=== PATIENT | female | born 1985 | race Asian ===

== ENCOUNTER 2022-02-18 15:08 | Emergency (ER) | payer OTHER, SELFPAY ==
[2022-02-18 15:10] VITALS: BP 116/79; PULSE 66; RESP 18; TEMP 36.8; O2SAT 99; BMI 28.3
--- NOTE | 2022-02-18 17:56 | ED.EYEPROB ---
HPI - Eye Problem <Belle Cordero PA-C - Last Filed: 02/18/22 18:01> General Chief complaint: Eye Problems Stated complaint: RIGHT EYE INFECTION Time Seen by Provider: 02/18/22 16:43 Source: patient Mode of arrival: Ambulatory History of Present Illness HPI Narrative: 36-year-old female with no reported past medical history presents to the ED with 2 days of right eyelid swelling, redness, pain. Patient states that she tried to put on some fells eyelashes with glue, following which her symptoms started. Patient's symptoms have gradually worsened over the last 2 days. Patient denies any visual disturbances. Patient denies pain behind the eye. Patient denies pain with extraocular movements. Related Data Previous Rx's Medication Instructions Recorded cefdinir 300 mg capsule 300 mg PO BID 7 Days #14 cap 02/18/22 sulfamethoxazole 800 1 tab PO BID 7 Days #14 tab 02/18/22 mg-trimethoprim 160 mg tablet (Bactrim DS) Allergies Allergy/AdvReac Type Severity Reaction Status Date / Time No Known Drug Allergies Allergy Verified 02/18/22 15:10 Review of Systems <Belle Cordero PA-C - Last Filed: 02/18/22 18:01> Review of Systems ROS Unobtainable: All systems reviewed & are unremarkable except as noted in HPI and below Constitutional Constitutional: Denies chills, Denies fatigue, Denies fever(s), Denies frequent falls, Denies lethargy and Denies weakness Eyes Eyes: Denies change in vision, Denies eye discharge, Denies irritation and Denies loss of vision Comments: Right upper eyelid painful, swollen, red. No visual disturbances. No pain with extraocular movements ENT Ears, Nose, Mouth, and Throat: Denies change in voice, Denies dizziness, Denies neck pain, Denies sore throat and Denies throat swelling Cardiovascular Cardiovascular: Denies chest pain, Denies irregular heart rhythm, Denies lightheadedness, Denies palpitations, Denies dyspnea, Denies dyspnea on exertion and Denies orthopnea Respiratory Respiratory: Denies cough, Denies dyspnea, Denies dyspnea on exertion and Denies wheezing Gastrointestinal Gastrointestinal: Denies abdominal pain, Denies change in bowel habits, Denies diarrhea, Denies nausea and Denies vomiting Genitourinary Genitourinary: Denies hematuria, Denies flank pain, Denies urinary incontinence and Denies urinary urgency Musculoskeletal Musculoskeletal: Denies back pain, Denies muscle weakness, Denies neck pain, Denies numbness and Denies tingling Integumentary/Breasts Skin/Breast: Denies pruritus, Denies erythema, Denies rash and Denies wounds Neurologic Neurologic: Denies behavioral changes, Denies confusion, Denies dizziness, Denies frequent falls, Denies loss of vision, Denies numbness, Denies tingling and Denies weakness Psychiatric Psychiatric: Denies anxiety, Denies behavioral changes, Denies confusion, Denies depression, Denies homicidal ideation and Denies suicidal ideation Endocrine Endocrine: Denies fatigue, Denies flushing and Denies palpitations Hematologic/Lymphatic Hematologic/Lymphatic: Denies easy bruising Allergic/Immunologic Allergic/Immunologic: Denies urticaria, Denies throat swelling and Denies wheezing Patient History <Belle Cordero PA-C - Last Filed: 02/18/22 18:01> Social History Smoking Status: Current every day smoker Smoking Status: Current every day smoker tobacco type: cigarettes and vaping alcohol intake frequency: holidays/special occasions only Substance Use Type: does not use Exam <Belle Cordero PA-C - Last Filed: 02/18/22 18:01> Initial Vital Signs Initial Vital Signs: Vital Signs Temperature 98.3 F 02/18/22 15:10 Pulse Rate 66 02/18/22 15:10 Respiratory Rate 18 02/18/22 15:10 Blood Pressure 116/79 02/18/22 15:10 Pulse Oximetry 99 02/18/22 15:10 Const General: cooperative, healthy appearing and comfortable [facility] Head: normal to inspection Eyes General: Yes appearance normal, both eyes and all related structures Neck Neck: normal visual inspection Resp Effort & Inspection: normal respiratory effort Auscultation: clear to auscultation bilaterally Cardio Rate: regular rate Rhythm: regular rhythm Skin General: no rashes or lesions noted Neuro General: patient alert, patient awake and patient oriented x3 Psych Appearance: grossly normal Mental Status: mental status grossly normal <Yared Anaya DO - Last Filed: 02/23/22 01:40> Initial Vital Signs Initial Vital Signs: Vital Signs Temperature 98.3 F 02/18/22 15:10 Pulse Rate 66 02/18/22 15:10 Respiratory Rate 18 02/18/22 15:10 Blood Pressure 116/79 02/18/22 15:10 Pulse Oximetry 99 02/18/22 15:10 Course <Belle Cordero PA-C - Last Filed: 02/18/22 18:01> Vital Signs Vital signs: Vital Signs - 8 hr 02/18/22 15:10 Temperature 98.3 F Pulse Rate 66 Respiratory Rate 18 Blood Pressure 116/79 Pulse Oximetry 99 <DO Shilpi Crockett Last Filed: 02/23/22 01:40> Vital Signs Vital signs: Vital Signs - 8 hr 02/18/22 15:10 Temperature 98.3 F Pulse Rate 66 Respiratory Rate 18 Blood Pressure 116/79 Pulse Oximetry 99 MDM - Eye Problem <Belle Cordero PA-C - Last Filed: 02/18/22 18:01> MDM Narrative Medical decision making narrative: 36-year-old female with no reported past medical history presents to the ED with 2 days of right eyelid swelling, redness, pain. Concern for periorbital cellulitis. Will prescribe antibiotics. ED return precautions discussed with patient. Patient verbalizes understanding. Discharge Plan Departure Patient Disposition: Home Clinical Impression: Periorbital cellulitis Instructions: DI for Eye Pain Activity Restrictions/Additional Instructions: You were evaluated for right-sided upper eyelid swelling, pain. Your symptoms are likely due to preorbital cellulitis which is a infection of the eyelid. You have been prescribed 2 antibiotics for it. Please complete the full course of antibiotics. Please follow-up with an medical collections representative. Return to the ED if your symptoms worsen, you develop fever, chills. Prescriptions: New cefdinir 300 mg capsule 300 mg PO BID 7 Days Qty: 14 0RF sulfamethoxazole-trimethoprim [Bactrim DS] 800-160 mg tablet 1 tab PO BID 7 Days Qty: 14 0RF <DO Shilpi Crockett Last Filed: 02/23/22 01:40> Cosign ED Attending Veronica Attestation: I was immediately available in the department for consultation. Documentation has been reviewed. I agree with assessment and plan.
== END 2022-02-18 18:00 | disposition home or self-care (01) ==
PROVIDERS: Emergency Provider Student in an Organized Health Care Education/Training Program
DX: L03.213 Periorbital cellulitis (principal)
CPT/HCPCS: 99281

== ENCOUNTER 2022-08-10 16:22 | Observation (INO) | payer OTHER, SELFPAY ==
[2022-08-10 17:00] VITALS: BP 126/75; PULSE 70; RESP 18; TEMP 36.8; O2SAT 99; BMI 26.9
[2022-08-10 17:54] LABS: Alanine Aminotransferase 18 IU/L (<35); Albumin 4.2 g/dL (3.5-5.0); Albumin Globulin Ratio 1.2 (1.0-2.8); Alkaline Phosphatase 78 U/L (38-126); Aspartate Aminotransferase 21 IU/L (14-36); BUN Creatinine Ratio 11.3 (6-22); Bilirubin Total 0.3 mg/dL (0.2-1.3); Blood Urea Nitrogen 7 mg/dL (7-17); Calcium 8.7 mg/dL (8.4-10.2); Carbon Dioxide 25 mmol/L (22-32); Chloride 102 mmol/L (98-107); Estimated Glomerular Filt Rate > 60 mL/min (>60); Globulin 3.6 g/dL (1.7-4.1); Glucose 164 mg/dL (70-100); HEMOLYSIS < 15 (0-50); Lipase 84 U/L (23-300); Potassium 3.2 mmol/L (3.4-5.1); Sodium 138 mmol/L (137-145); Total Protein 7.8 g/dL (6.3-8.2)
[2022-08-10 17:56] LABS: Add Manual Diff / Slide Review NO; Basophils Absolute Auto 100 /uL (0-100); Basophils Percent Auto 0.5 % (0-2); Eosinophils Absolute Auto 0 /uL (0-450); Eosinophils Percent Auto 0.2 % (2-4); Hematocrit 34.8 % (36-46); Hemoglobin 11.9 g/dL (12.0-16.0); Lymphocytes Absolute Auto 1500 /uL (1100-4500); Lymphocytes Percent Auto 12.7 % (25-40); Mean Corpuscular Hemoglobin 29.5 PG (26-34); Mean Corpuscular Volume 86.6 fL (80-100); Monocytes Absolute Auto 500 /uL (0-900); Monocytes Percent Auto 4.4 % (3-14); Neutrophils Absolute Auto 10000 /uL (1500-7000); Neutrophils Percent Auto 82.2 % (50-75); Platelet Count 308 X10^3/uL (150-400); Red Blood Cell Count 4.02 X10^6/uL (4.0-5.2); Red Cell Distribution Width 13.1 % (11.6-14.8); White Blood Cell Count 12.1 X10^3/uL (4.5-11.0)
[2022-08-10 18:00] LABS: Bacteria Urine None Seen; Calcium Oxalate Crystals Urine Moderate; Ictotest Urine Negative (Negative); RBC Urine 1-5/HPF (0-5/HPF); Squamous Epithelial Cell Urine 1-5 /HPF (0-5/HPF); WBC Urine None Seen (0-5/HPF)
[2022-08-10 19:00] VITALS: BP 125/85; PULSE 65; RESP 18; O2SAT 99
--- NOTE | 2022-08-10 20:24 | ED.ABDPAIN ---
HPI - Abdominal Pain General Chief Complaint: Abdominal Pain Stated Complaint: Rt Side Adb/Back Pain Time Seen by Provider: 08/10/22 20:21 Source: patient Mode of arrival: Ambulatory Limitations: no limitations History of Present Illness HPI narrative: This is a 37 year old female no known medical issues who is had right-sided abdominal and flank pain for the past month intermittently she states it will often last for 5 hours and then go away. She does not appreciate any alleviating or exacerbating factors. No fevers or chills. She does state she feels cold and sweaty when it happens. She denies diarrhea constipation, no black or bloody stools. No dysuria, urgency or frequency. No vaginal bleeding or discharge. Patient notes she does not get regular menses and is not currently menstruating. Patient states no known drug allergies. Denies any prior surgeries. Does use tobacco, occasional alcohol. No illicit. She takes Tylenol for pain which is somewhat helpful. Related Data Allergies Allergy/AdvReac Type Severity Reaction Status Date / Time No Known Drug Allergies Allergy Verified 02/18/22 15:10 Review of Systems Review of Systems ROS Unobtainable: All systems reviewed & are unremarkable except as noted in HPI and below Patient History Social History household members: spouse Smoking Status: Current every day smoker Smoking Status: Current every day smoker tobacco type: cigarettes and vaping alcohol intake frequency: holidays/special occasions only Substance Use Type: does not use Exam Narrative Exam Narrative: GENERAL: Alert and oriented x three, female in mild distress HEENT: Head normocephalic, atraumatic, EOMI, pupils reactive, face symmetric, moist mucous membranes NECK: Supple, full range of motion CARDIOVASCULAR: Regular rate and rhythm without murmurs, rubs or gallops. RESPIRATORY: Breath sounds equal bilaterally, no wheezes rales or rhonchi. ABDOMEN: Soft, positive for right upper quadrant tenderness. Normoactive bowel sounds all 4 quadrants. No guarding or rebound, rigidity, no mass : No CVA tenderness EXTREMITIES: Normal range of motion, no clubbing or edema. Neurovascularly intact NEUROLOGICAL: Cranial nerves II through XII grossly intact. Moving all extremities SKIN: Warm, dry, no petechiae, no rashes or lesions. Initial Vital Signs Initial Vital Signs: Vital Signs Temperature 98.2 F 10/29/22 17:00 Pulse Rate 70 08/10/22 17:00 Respiratory Rate 18 08/10/22 17:00 Blood Pressure 126/75 08/10/22 17:00 Pulse Oximetry 99 08/10/22 17:00 Oxygen Delivery Method 08/10/22 17:00 Course Orders Ordered: ED Orders 08/10/22 20:31 US abdomen complete Stat 08/10/22 22:39 COVID19 -Nasal RAPID/Pre-Proc Stat Discontinued Medications Piperacillin Sod/Tazobactam (Sod 4.5 gm/ Sodium Chloride) 100 mls @ 200 mls/hr IV NOW ONE Stop: 08/10/22 22:04 Last Infusion: 08/10/22 23:30 Dose: 0 mls/hr Documented By: Admin: 08/10/22 22:27 Dose: 200 mls/hr Documented By: KIRTI Ketorolac Tromethamine (Ketorolac 30 Mg/Ml Vial) 15 mg IV NOW ONE Stop: 08/10/22 20:32 Last Admin: 08/10/22 21:01 Dose: 15 mg Documented By: ALY Consultations Consultation #1: Dr. Mcgrath, accepts observation for cholecystitis. Plan for Zosyn. NPO after midnight. Time: 22:51 Vital Signs Vital signs: Vital Signs - 8 hr 08/10/22 17:00 Temperature 98.2 F Pulse Rate 70 Respiratory Rate 18 Blood Pressure 126/75 Pulse Oximetry 99 Oxygen Delivery Method Room Air MDM - Abdominal Pain Lab Data Result diagrams: 08/10/22 17:29 08/10/22 17:29 Labs: Lab Results 08/10/22 08/10/22 08/10/22 Range/Units 17:29 17:29 17:29 WBC 12.1 H (4.5-11.0) X10^3/uL RBC 4.02 (4.0-5.2) X10^6/uL Hgb 11.9 L (12.0-16.0) g/dL Hct 34.8 L (36-46) % MCV 86.6 (80-100) fL MCH 29.5 (26-34) PG MCHC 34.0 (30-36) % RDW 13.1 (11.6-14.8) % Plt Count 308 (150-400) X10^3/uL Neut % (Auto) 82.2 H (50-75) % Lymph % (Auto) 12.7 L (25-40) % [place] % (Auto) 4.4 (3-14) % Eos % (Auto) 0.2 L (2-4) % Baso % (Auto) 0.5 (0-2) % Neut # (Auto) 65092 H (8929-2161) /uL Lymph # (Auto) 1500 (7644-8681) /uL [place] # (Auto) 500 (0-900) /uL Eos # (Auto) 0 (0-450) /uL Baso # (Auto) 100 (0-100) /uL Sodium 138 (137-145) mmol/L Potassium 3.2 L (3.4-5.1) mmol/L Chloride 102 (98-107) mmol/L Carbon Dioxide 25 (22-32) mmol/L BUN 7 (7-17) mg/dL Creatinine 0.62 (0.52-1.04) mg/dL Estimated GFR > 60 (>60) mL/min BUN/Creatinine Ratio 11.3 (6-22) Glucose 164 H (70-100) mg/dL Calcium 8.7 (8.4-10.2) mg/dL Total Bilirubin 0.3 (0.2-1.3) mg/dL AST 21 (14-36) IU/L ALT 18 (<35) IU/L Alkaline Phosphatase 78 (38-126) U/L Total Protein 7.8 (6.3-8.2) g/dL Albumin 4.2 (3.5-5.0) g/dL Globulin 3.6 (1.7-4.1) g/dL Albumin/Globulin Ratio 1.2 (1.0-2.8) Lipase 84 (23-300) U/L Ur Bilirubin Confirm Negative (Negative) Urine RBC 1-5/hpf (0-5/HPF) Urine WBC None seen (0-5/HPF) Ur Squamous Epith Cells 1-5 /hpf (0-5/HPF) Calcium Oxalate Crystal Moderate H Urine Bacteria None seen (None) SARS-CoV-2 (PCR) (Negative) 08/10/22 Range/Units 22:39 WBC (4.5-11.0) X10^3/uL RBC (4.0-5.2) X10^6/uL Hgb (12.0-16.0) g/dL Hct (36-46) % MCV (80-100) fL MCH (26-34) PG MCHC (30-36) % RDW (11.6-14.8) % Plt Count (150-400) X10^3/uL Neut % (Auto) (50-75) % Lymph % (Auto) (25-40) % [place] % (Auto) (3-14) % Eos % (Auto) (2-4) % Baso % (Auto) (0-2) % Neut # (Auto) (8020-4627) /uL Lymph # (Auto) (3116-8417) /uL [place] # (Auto) (0-900) /uL Eos # (Auto) (0-450) /uL Baso # (Auto) (0-100) /uL Sodium (137-145) mmol/L Potassium (3.4-5.1) mmol/L Chloride (98-107) mmol/L Carbon Dioxide (22-32) mmol/L BUN (7-17) mg/dL Creatinine (0.52-1.04) mg/dL Estimated GFR (>60) mL/min BUN/Creatinine Ratio (6-22) Glucose (70-100) mg/dL Calcium (8.4-10.2) mg/dL Total Bilirubin (0.2-1.3) mg/dL AST (14-36) IU/L ALT (<35) IU/L Alkaline Phosphatase (38-126) U/L Total Protein (6.3-8.2) g/dL Albumin (3.5-5.0) g/dL Globulin (1.7-4.1) g/dL Albumin/Globulin Ratio (1.0-2.8) Lipase (23-300) U/L Ur Bilirubin Confirm (Negative) Urine RBC (0-5/HPF) Urine WBC (0-5/HPF) Ur Squamous Epith Cells (0-5/HPF) Calcium Oxalate Crystal Urine Bacteria (None) SARS-CoV-2 (PCR) Negative (Negative) Point of care testing: Point of Care Testing Test Results Negative Urine Dip Bedside Urine Glucose Negative Bedside Urine Bilirubin + 1 Bedside Urine Ketone + 15 Urine Specific [place] 1.030 Bedside Urine Occult Blood ++ Bedside Urine pH 6 Bedside Urine Protein +/- 15 Bedside Urine Urobilinogen - Negative Bedside Urine Nitrite - Negative Bedside Urine Leukocytes - Negative Esterase Imaging Data US - abdomen: Radiologist's Impression: [address] [address] Ultrasound Report Signed Patient: Kacy Ornelas MR#: [id number] : 1985 Acct:[id number] Age/Sex: 37 / F Date of Service: 08/10/22 Loc: ED Accession Number: [id number] ?? Procedure: US abdomen complete Ordering Provider: Kika Espinoza D.O. PROCEDURE:? US ABDOMEN COMPLETE ? INDICATIONS:? RUQ pain/also kidney ? TECHNIQUE:? Real-time scanning was performed of the abdominal and retroperitoneal organs, with image documentation.? ? COMPARISON:? None. ? FINDINGS:? ? Liver:? Liver is normal in size and homogeneous in echotexture.? Incidental note is made of a small 1.0 x 1.3 x 0.9 cm left lateral hepatic segment cyst, simple in character ? Gallbladder:? The gallbladder is hydropic measuring up to 14.2 cm in length and 2.5 x 3.7 cm in axial dimension.? There is a mobile 1.6 cm gallstone at the fundus, and a nonmobile 1.0 x 1.4 cm gallstone at the gallbladder neck.? The gallbladder wall is abnormally thickened at 6.3 mm and there is abnormal pericholecystic free fluid.? Sludge also is present within the gallbladder lumen. ? Biliary ducts:? Intrahepatic bile ducts are non-dilated.? Extrahepatic bile duct caliber measures 7.6 mm at the common bile duct mm.? Normal is 6-7 mm or less in diameter, or 10 mm or less post-cholecystectomy.? ? Pancreas:? Visualized portions of the pancreas are sonographically normal.? The pancreas is poorly visualized due to overlying bowel gas. ? Spleen:? Spleen is normal in size and homogeneous in echotexture.? ? Kidneys:? Kidneys are normal in size and echotexture.? Right kidney measures 10.6 cm long; left kidney measures 10.8 cm long.? No hydronephrosis or nephrolithiasis.? No solid masses.? ? Aorta:? Visualized aorta is normal in caliber at less than 3 cm.? ? Iliacs:? Proximal common iliac arteries are normal in caliber at less than 2.5 cm.? ? IVC:? Intrahepatic inferior vena cava is patent.? ? Miscellaneous:? No free abdominal fluid.? ? ? IMPRESSION:? Cholecystitis peers present, with post sludge and stones within the gallbladder lumen including a calculus that appears impacted at the gallbladder neck, nonmobile.? This results in abnormal gallbladder wall thickening, and pericholecystic free fluid with gallbladder wall thickening surgical consultation is recommended. ? As noted above the pancreas is relatively poorly visualized due to overlying bowel gas. ? ? ? Dictated by: Obed Aguilera M.D. on 08/10/2022 at 22:08 ? ? Approved by: Obed Aguilera M.D. on 08/10/2022 at 22:13?? MDM Narrative Medical decision making narrative: This is a 37-year-old female who presents with intermittent right-sided abdominal and flank pain that comes and goes she does have some hematuria and calcium oxalate but is tender in her right upper quadrant on exam.? Leukocytosis of 12, hemoglobin of 11 with no priors for comparison, potassium 3.2 with a glucose of 164 otherwise normal LFTs and abdominal labs and renal function.? Urine does not show other signs of infection. Ultrasound shows changes consistent with cholecystitis with a non mobile large stone in the neck of the gallbladder no lab changes, patient was started IV antibiotics consultation with general surgery who accepts with plan for OR today. Discussed with patient who is open to this plan. Discharge Plan Departure Patient Disposition: Admitted as Observation Clinical Impression: Cholecystitis Admit Date/Time: 08/10/22 22:51 Admit Provider: Magdiel Mcgrath
--- NOTE | 2022-08-10 20:31 | DI.US.S_ITS ---
PROCEDURE: US ABDOMEN COMPLETE INDICATIONS: RUQ pain/also kidney TECHNIQUE: Real-time scanning was performed of the abdominal and retroperitoneal organs, with image documentation. COMPARISON: None. FINDINGS: Liver: Liver is normal in size and homogeneous in echotexture. Incidental note is made of a small 1.0 x 1.3 x 0.9 cm left lateral hepatic segment cyst, simple in character Gallbladder: The gallbladder is hydropic measuring up to 14.2 cm in length and 2.5 x 3.7 cm in axial dimension. There is a mobile 1.6 cm gallstone at the fundus, and a nonmobile 1.0 x 1.4 cm gallstone at the gallbladder neck. The gallbladder wall is abnormally thickened at 6.3 mm and there is abnormal pericholecystic free fluid. Sludge also is present within the gallbladder lumen. Biliary ducts: Intrahepatic bile ducts are non-dilated. Extrahepatic bile duct caliber measures 7.6 mm at the common bile duct mm. Normal is 6-7 mm or less in diameter, or 10 mm or less post-cholecystectomy. Pancreas: Visualized portions of the pancreas are sonographically normal. The pancreas is poorly visualized due to overlying bowel gas. Spleen: Spleen is normal in size and homogeneous in echotexture. Kidneys: Kidneys are normal in size and echotexture. Right kidney measures 10.6 cm long; left kidney measures 10.8 cm long. No hydronephrosis or nephrolithiasis. No solid masses. Aorta: Visualized aorta is normal in caliber at less than 3 cm. Iliacs: Proximal common iliac arteries are normal in caliber at less than 2.5 cm. IVC: Intrahepatic inferior vena cava is patent. Miscellaneous: No free abdominal fluid. IMPRESSION: Cholecystitis peers present, with post sludge and stones within the gallbladder lumen including a calculus that appears impacted at the gallbladder neck, nonmobile. This results in abnormal gallbladder wall thickening, and pericholecystic free fluid with gallbladder wall thickening surgical consultation is recommended. As noted above the pancreas is relatively poorly visualized due to overlying bowel gas. Dictated by: Obed Aguilera M.D. on 08/10/2022 at 22:08 Approved by: Obed Aguilera M.D. on 08/10/2022 at 22:13
[2022-08-10 21:00] VITALS: BP 135/87; PULSE 68; RESP 16; O2SAT 100
[2022-08-10] MEDS: KETOROLAC 30 MG/ML VIAL 15 MG IV (21:01)
[2022-08-10] MEDS: PIPERACILLIN/TAZO 4.5 GM in SODIUM CHLORIDE 0.9% 100 ML IV (22:27)
[2022-08-10 23:01] LABS: COVID19 -Nasal RAPID Negative (Negative)
[2022-08-10 23:17] VITALS: BP 143/86; PULSE 61; RESP 20; O2SAT 99
[2022-08-10 23:29] VITALS: BMI 26.9
[2022-08-11] VITALS (13 sets, daily range): BP systolic 90–121; BP diastolic 51–82; PULSE 54–94; RESP 14–24; TEMP 35.5–36.9; O2SAT 96–100; BMI 26.9
--- NOTE | 2022-08-11 | PATH_ITS ---
[facility] Accession Number: [id number] . 01 Material submitted: . gallbladder - GALLBLADDER . 01 Diagnosis: Gallbladder, Cholecystectomy: Cholelithiasis with chronic active cholecystitis. No evidence of neoplasm. [facility] 08/15/2022 1730 Local . 01 Electronically signed: . Abhijeet Pool MD, PhD, Pathologist NPI- [id number] . 01 Gross description: . The specimen is received in formalin labeled with the patient's name and gallbladder, and consists of an intact gallbladder measuring 14.2 x 3.1 x 2.7 cm with congested smooth serosa and a rough and unremarkable hepatic surface. The cystic duct is received closed with a clamp, is inked blue, and no pericystic lymph node is identified. Opening the specimen reveals the lumen to be filled with green-brown mucoid bile and two dark brown to black roughened calculi obstructing the cystic duct and measuring 1.5 cm in greatest dimension. The mucosa is brown and trabecular with no pinpoint yellow areas of discoloration, polyps, or lesions identified. The harman have a thickened firm area located approximately centrally and measuring 1.8 x 1.4 x 0.5 cm, and the serosa adjacent to this area is inked black. A second firm thickened area measuring 1.6 x 1.3 x 0.5 cm is identified, and the serosa adjacent to this area is inked orange. The remaining harman average 0.4 cm thick, and medical billing representative sections to include the cystic duct margin, unremarkable sections, and areas of thickening are submitted in cassettes A1-A2. ([id number]) /MRV 08/14/2022 1236 Local . 01 Pathologist provided ICD-10: K81.2, K80.60 . 01 CPT . 316811 Performed at: 01 [facility] [address] [address] [facility], [place], [place] [id number] MD Jordi Mccann MD Phone: [phone]
--- NOTE | 2022-08-11 04:50 | PC.NURSE ---
Pt is AxOx4, independent and cooperative. Pt arrived to the unit around 2330. No c/o pain, on RA and doing well. Pt slept well. No other changes.
--- NOTE | 2022-08-11 11:46 | PM.HP.1 ---
History of Present Illness History of Present Illness Date Patient Seen: 08/11/22 Time Patient Seen: 11:46 Chief complaint: Rt Side Adb/Back Pain Narrative: 37-year-old healthy woman who presented to the emergency room last night with acute onset of abdominal pain. She has been having previous episodes of right upper quadrant pain with associated nausea and bloating following meals. Last night she developed severe pain which did not resolve spontaneously. On arrival to she was afebrile vital signs within normal limits. Laboratory studies WBC 12, hematocrit 35, total bilirubin 0.3 LFTs within normal limits. Abdominal ultrasound demonstrates a distended gallbladder with a stone lodged within the neck of judy cholecystic fluid or wall thickening. Bile duct structures were normal. Patient History Family & Social History Social History: household members spouse Prior Living Arrangements House Safety & Behavioral: Feels Safe in Current Yes Environment Been Physically Hurt or No Threatened By a Person Tobacco & Substance use: Smoking Status Current every day smoker alcohol intake frequency holiday/special occasion Substance Use Type does not use Meds Home Medications and Allergies Allergies Allergy/AdvReac Type Severity Reaction Status Date / Time No Known Drug Allergies Allergy Verified 02/18/22 15:10 Exam Vital Signs (past 8 hours): - 08/11/22 08:42 Temperature 96.4 F L Pulse Rate 68 Respiratory Rate 16 Blood Pressure 113/72 Pulse Oximetry 98 Oxygen Flow Rate 0 Oxygen Delivery Method Room Air Oxygen Flow Rate 0 Narrative Exam Narrative: General adult woman alert oriented no acute distress Chest nonlabored respirations Abdomen tender right upper quadrant. Extremities warm well perfused Objective Labs Result Diagrams: 08/10/22 17:29 08/10/22 17:29 Labs: Laboratory Results - last 24 hr 08/10/22 08/10/22 08/10/22 17:29 17:29 17:29 WBC 12.1 H RBC 4.02 Hgb 11.9 L Hct 34.8 L MCV 86.6 MCH 29.5 MCHC 34.0 RDW 13.1 Plt Count 308 Neut % (Auto) 82.2 H Lymph % (Auto) 12.7 L [place] % (Auto) 4.4 Eos % (Auto) 0.2 L Baso % (Auto) 0.5 Neut # (Auto) 54919 H Lymph # (Auto) 1500 [place] # (Auto) 500 Eos # (Auto) 0 Baso # (Auto) 100 Sodium 138 Potassium 3.2 L Chloride 102 Carbon Dioxide 25 BUN 7 Creatinine 0.62 Estimated GFR > 60 BUN/Creatinine Ratio 11.3 Glucose 164 H Calcium 8.7 Total Bilirubin 0.3 AST 21 ALT 18 Alkaline Phosphatase 78 Total Protein 7.8 Albumin 4.2 Globulin 3.6 Albumin/Globulin Ratio 1.2 Lipase 84 Ur Bilirubin Confirm Negative Urine RBC 1-5/hpf Urine WBC None seen Ur Squamous Epith Cells 1-5 /hpf Calcium Oxalate Crystal Moderate H Urine Bacteria None seen SARS-CoV-2 (PCR) 08/10/22 22:39 WBC RBC Hgb Hct MCV MCH MCHC RDW Plt Count Neut % (Auto) Lymph % (Auto) [place] % (Auto) Eos % (Auto) Baso % (Auto) Neut # (Auto) Lymph # (Auto) [place] # (Auto) Eos # (Auto) Baso # (Auto) Sodium Potassium Chloride Carbon Dioxide BUN Creatinine Estimated GFR BUN/Creatinine Ratio Glucose Calcium Total Bilirubin AST ALT Alkaline Phosphatase Total Protein Albumin Globulin Albumin/Globulin Ratio Lipase Ur Bilirubin Confirm Urine RBC Urine WBC Ur Squamous Epith Cells Calcium Oxalate Crystal Urine Bacteria SARS-CoV-2 (PCR) Negative Assessment & Plan Assessment and plan (1) Acute cholecystitis: Status: Acute Assessment & Plan narrative: 37-year-old woman with his symptoms and radiographic findings consistent with acute cholecystitis. We discussed disease management including surgical intervention. Following discussion her preference is to proceed with laparoscopic cholecystectomy. Overview of the operation was discussed with the patient. Operative risks including bleeding, infection, damage to surrounding structures, bile duct injury were discussed. Her questions have been answered and she is in agreement with this plan. She gives her written and verbal consent to proceed. Time Spent With Patient Critical Care time: I spent a total of [] minutes of critical care time on this patient's care today; this time is exclusive of procedural time. Quality VTE Deep Vein Thrombosis/Pulmonary Embolism Present on Admission: No
[2022-08-11] MEDS: LACTATED RINGERS 1,000 ML 42 ML IV ×2 (11:48→13:18)
[2022-08-11] MEDS: CEFAZOLIN 2 GM/100 ML PREMIX 100 ML IV (12:32)
[2022-08-11] MEDS: BUPIVACAINE 0.25% (PF) VIAL 30 ML INJ (12:37)
--- NOTE | 2022-08-11 12:39 | SUR.OPER ---
Supine on padded OR bed, head on pillow, safety belt at thigh, left arm padded and tucked at side. Right arm secured on padded arm board <90 degrees abduction. Legs uncrossed. Padded footboard in place. Tape over blanket to secure lower legs. gel pad under bilateral heels.
--- NOTE | 2022-08-11 13:59 | P.OP_ITS ---
Operative Date/Time/Diagnoses Date of procedure: 08/11/22 Time of procedure: 13:59 Pre-op diagnosis: Acute cholecystitis Post-op diagnosis: same Procedure & Clinicians Procedure: Laparoscopic cholecystectomy Same procedure as scheduled: Yes Indications: Symptoms and radiographic findings consistent with acute cholecystitis Surgeon: Magdiel Mcgrath Click Yes if Unassisted: Yes Anesthesia Type: General Operative Notes Findings: Hydropic gallbladder with a gallstone lodged within the neck Specimen(s): other (Gallbladder) Estimated Blood Loss (mL): 300 Procedure in detail: The patient was placed supine on the table and bilateral lower extremity compression devices were applied. Anesthesia was induced they were intubated with an endotracheal tube and received 2g of Ancef. A time-out was performed. They were prepped and draped in sterile fashion. An infraumbilical incision was made, the umbilical stalk was elevated and the fascia was sharply incised entering the abdomen atraumatically. A blunt tip 12mm balloon trocar was then inserted, pneumoperitoneum was established and inspection of the abdomen demonstrated no evidence of injury. They were placed head up and right side up and then a 11 mm port was placed high in the epigastrium and two 5mm in the right upper quadrant. The gallbladder was elongated approximately 15 cm and hydropic. It was acutely inflamed. The gallbladder was grasped by the fundus and retracted over the liver and retracted laterally by the infundibulum. Us ing electrocautery the lateral plane between the gallbladder and the liver was opened towards the fundus. The gallbladder was then retracted laterally and the medial plane was developed in the same manner. With the gallbladder mobilized the bottom of the cystic plate was visualized. The hepatocystic triangle was meticulosly skeletonized using the suction charge accounts audit clerk of all fat and fibrous tissue from both the front and the back. Only two structures were then clearly seen entering the gallbladder the cystic duct and the cystic artery. With the critical view of safety fully established the cystic duct was clipped twice proximally and once distally using the 10 mm clip applied under direct visualization and then sharply divided. There was bleeding from a posterior branch of the cystic artery which was carefully controlled with clips however the total EBL was approximately 300 mL. The cystic artery was divided in the same fashion. The gallbladder was removed from the liver bed using electro cautery. The liver bed was then inspected for hemostasis and this was achieved. The abdomen was irrigated with sterile saline, 3 L and inspection was made that showed the clips in good position. The specimen was removed using Endo-Catch. The abdomen was desufflated. The umbilical fascia was closed with 0 Vicryl in a [id number] fashion under direct visualization. Skin incisions were irrigated and closed with 4-0 Monocryl. 30 ml of 0.25% bupivacaine was infiltrated into the subcutaneous tissue of the incisions. The wounds were sealed with Dermabond. Patient emerged from anesthesia was extubated and transferred to recovery in stable condition. The sponge and instrument count at the end of the operation was correct. Complications: none Post-operative Condition: stable Disposition: same day surgery
--- NOTE | 2022-08-11 14:10 | SUR.PHASEI ---
Patient waking up without difficulty; vss; denies any pain or nausea at this time. VSS.
[2022-08-11] MEDS: ONDANSETRON 4 MG/2 ML INJ IV (14:15)
[2022-08-11] MEDS: ACETAMINOPHEN 325 MG TABLET 650 MG PO (14:43)
[2022-08-11] MEDS: KETOROLAC 30 MG/ML VIAL IV (14:45)
[2022-08-11] MEDS: HYDROMORPHONE 0.5 MG INJ IV (17:03)
[2022-08-11] MEDS: OXYCODONE IR 5 MG TABLET PO (18:43)
== END 2022-08-11 18:47 | disposition home or self-care (01) ==
LOC: ED 22:50 → AC 22:53
PROVIDERS: Emergency Medicine; Admitting Provider Surgery; Emergency Provider Emergency Medicine; Visit Provider Surgery
PROC: 0FT44ZZ Resection of Gallbladder, Percutaneous Endoscopic Approach (ICD-10-PCS; CPT 47562; principal; 2022-08-11 12:30)
DX: K80.00 Calculus of gallbladder with acute cholecystitis without obstruction (principal); F17.210 Nicotine dependence, cigarettes, uncomplicated; Z20.822 Contact with and (suspected) exposure to COVID-19
CPT/HCPCS: 47562; 36415; 76700; 80053; 81003; 81015; 81025; 83690; 85025; 87086; 87635; 96365; 96375; 96376; 99218; 99284; C9803; G0378; J0690; J1100; J1170; J1885; J2250; J2405; J2543; J2704; J3010

== ENCOUNTER 2022-09-06 02:35 | Emergency (ER) | payer OTHER, SELFPAY ==
[2022-08-12 09:59] VITALS: BMI 26.9
[2022-09-06] VITALS (9 sets, daily range): BP systolic 87–101; BP diastolic 56–64; PULSE 52–61; RESP 14–16; TEMP 36.2; O2SAT 98–100
--- NOTE | 2022-09-06 02:42 | ED_ITS ---
HPI - Abdominal Pain General Chief Complaint: Abdominal Pain Stated Complaint: abd pain, sweating and back pain Time Seen by Provider: 09/06/22 02:38 History of Present Illness HPI narrative: 37-year-old female nonsmoker with recent cholecystectomy presents with her in the chief complaint of severe abdominal pain and radiation to her back including nausea and diaphoresis. She states that she had been in her normal state of health until a few hours ago when she developed relatively sudden onset epigastric pain with radiation to her back. She states it is worse when she moves and improves with rest. She is had no fever chills. She admits to sore throat and difficulty swallowing. She has no headache blurred vision, she is not lightheaded. She denies any fever, dysuria, urgency or vaginal bleeding or discharge. Related Data Previous Rx's Medication Instructions Recorded acetaminophen 325 mg capsule 650 mg PO QID PRN pain #60 caps 08/11/22 (Tylenol) docusate sodium 100 mg capsule 100 mg PO BID #30 caps 08/11/22 (Colace) ibuprofen 200 mg tablet 400 mg PO Q6H #60 tabs 08/11/22 hydrocodone 5 mg-acetaminophen 325 1 tab PO Q4-6H PRN pain #10 tabs 09/06/22 mg tablet ondansetron 4 mg disintegrating 4 mg PO TID-QID PRN nausea and 09/06/22 tablet vomiting #10 tabs Allergies Allergy/AdvReac Type Severity Reaction Status Date / Time No Known Drug Allergies Allergy Verified 08/29/22 09:05 Review of Systems Review of Systems Narrative: GENERAL: See HPI HEENT: Denies sinus pain, ear pain, sore throat, difficulty swallowing, dizziness. RESPIRATORY: Denies dyspnea, cough, wheezing, hemoptysis, sputum. CARDIOVASCULAR: Denies chest pain, palpitations, orthopnea, edema, GASTROINTESTINAL: see HPI : Denies dysuria, frequency, incontinence, hematuria, urinary retention. MUSCULOSKELETAL: denies weakness, joint pain, or bony pain SKIN: Denies rash, skin lesions, or other NEUROLOGIC: Denies weakness, headache, numbness, change in speech, confusion, s eizures, incoordination. PSYCHIATRIC: No concerning psychosocial issues. 12 point review of systems is negative except for those stated above Patient History Social History household members: spouse Smoking Status: Current every day smoker Smoking Status: Current every day smoker tobacco type: cigarettes and vaping alcohol intake frequency: holidays/special occasions only Substance Use Type: does not use Exam Narrative Exam Narrative: GENERAL: [37] year old patient appears stated age. Well-developed patient, in mild distress. HEAD: Atraumatic. Normocephalic. EYES: Pupils equal round and reactive. Extraocular motions intact. No scleral icterus. No injection or drainage. ENT: Nose without bleeding, purulent drainage. Throat without erythema, tonsillar hypertrophy or exudate. Airway patent. NECK: Trachea midline. Non tender CARDIOVASCULAR: Regular rate and rhythm without murmurs, gallops, or rubs. RESPIRATORY: Clear to auscultation. Breath sounds equal bilaterally. No wheezes, rales, or rhonchi. GASTROINTESTINAL: Abdomen soft, non-tender, nondistended. Incisions are clean, dry and intact EXTREMITIES: No edema or joint tenderness. BACK: Nontender without deformity or crepitance. No flank tenderness. NEURO: AOx3. SKIN: No rash or erythema of visible areas Initial Vital Signs Initial Vital Signs: Vital Signs Temperature 97.2 F L 09/06/22 03:10 Pulse Rate 54 L 09/06/22 03:10 Respiratory Rate 16 09/06/22 03:10 Blood Pressure 101/56 L 09/06/22 03:10 Pulse Oximetry 98 09/06/22 03:10 Oxygen Delivery Method 09/06/22 03:10 Course Orders Ordered: ED Orders 09/06/22 03:08 Complete Blood Count AUTO DIFF Stat Comprehensive Metabolic Panel Stat Lipase Stat 09/06/22 03:15 EKG-12 Lead Stat 09/06/22 03:17 Covid-19 + FLU A/B + RSV - PCR Stat 09/06/22 04:00 CT abdomen pelvis w con Stat Discontinued Medications Hydromorphone HCl (Hydromorphone 0.5 Mg Inj) 0.5 mg IV NOW ONE Stop: 09/06/22 04:01 Last Admin: 09/06/22 04:13 Dose: 0.5 mg Documented By: SACHI Sodium Chloride (Normal Saline 0.9%) 1,000 mls @ 1,000 mls/hr IV BOLUS ONE Stop: 09/06/22 04:59 Last Infusion: 09/06/22 06:20 Dose: 0 mls/hr Documented By: Admin: 09/06/22 04:13 Dose: 1,000 mls/hr Documented By: SACHI Ondansetron HCl (Ondansetron 4 Mg Odt) 4 mg PO NOW ONE Stop: 09/06/22 03:16 Last Admin: 09/06/22 04:30 Dose: Not Given Documented By: SACHI Ondansetron HCl (Ondansetron 4 Mg/2 Ml Inj) 4 mg IV NOW ONE Stop: 09/06/22 03:16 Last Admin: 09/06/22 04:13 Dose: 4 mg Documented By: SACHI Ondansetron HCl (Ondansetron 4 Mg/2 Ml Inj) 4 mg IV NOW ONE Stop: 09/06/22 04:01 Last Admin: 09/06/22 04:31 Dose: Not Given Documented By: SACHI Vital Signs Vital signs: Vital Signs - 8 hr 09/06/22 03:10 09/06/22 06:41 Temperature 97.2 F L Pulse Rate 54 L 55 L Respiratory Rate 16 14 Blood Pressure 101/56 L 93/64 Pulse Oximetry 98 98 Oxygen Delivery Method Room Air Room Air MDM - Abdominal Pain Lab Data Result diagrams: 09/06/22 03:08 09/06/22 03:08 Labs: Lab Results 09/06/22 09/06/22 09/06/22 Range/Units 03:08 03:08 03:17 WBC 10.1 (4.5-11.0) X10^3/uL RBC 3.73 L (4.0-5.2) X10^6/uL Hgb 10.9 L (12.0-16.0) g/dL Hct 32.9 L (36-46) % MCV 88.2 (80-100) fL MCH 29.2 (26-34) PG MCHC 33.2 (30-36) % RDW 13.6 (11.6-14.8) % Plt Count 264 (150-400) X10^3/uL Neut % (Auto) 67.8 (50-75) % Lymph % (Auto) 16.5 L (25-40) % [place] % (Auto) 12.3 (3-14) % Eos % (Auto) 2.2 (2-4) % Baso % (Auto) 1.2 (0-2) % Neut # (Auto) 6900 (7613-9368) /uL Lymph # (Auto) 1700 (9813-5760) /uL [place] # (Auto) 1200 H (0-900) /uL Eos # (Auto) 200 (0-450) /uL Baso # (Auto) 100 (0-100) /uL Sodium 140 (137-145) mmol/L Potassium 3.4 (3.4-5.1) mmol/L Chloride 107 (98-107) mmol/L Carbon Dioxide 24 (22-32) mmol/L BUN 8 (7-17) mg/dL Creatinine 0.61 (0.52-1.04) mg/dL Estimated GFR > 60 (>60) mL/min BUN/Creatinine Ratio 13.1 (6-22) Glucose 118 H (70-100) mg/dL Calcium 8.7 (8.4-10.2) mg/dL Total Bilirubin 0.7 (0.2-1.3) mg/dL AST 299 H (14-36) IU/L ALT 323 H (<35) IU/L Alkaline Phosphatase 211 H (38-126) U/L Total Protein 7.6 (6.3-8.2) g/dL Albumin 4.0 (3.5-5.0) g/dL Globulin 3.6 (1.7-4.1) g/dL Albumin/Globulin Ratio 1.1 (1.0-2.8) Lipase 142 (23-300) U/L SARS-CoV-2 (PCR) Negative (Negative) Influenza A (RT-PCR) Flu a negative (NEGATIVE) Influenza B (RT-PCR) Flu b negative (NEGATIVE) RSV (PCR) Negative (Negative) Point of care testing: Point of Care Testing Test Results Negative Urine Dip Bedside Urine Glucose Negative Bedside Urine Bilirubin ++ 2 Bedside Urine Ketone + 15 Urine Specific [place] 1.030 Bedside Urine Occult Blood ++ Bedside Urine pH 6.0 Bedside Urine Protein + 30 Bedside Urine Urobilinogen 1+ 2mg Bedside Urine Nitrite - Negative Bedside Urine Leukocytes - Negative Esterase Imaging Data CT scan - abdomen/pelvis: Radiologist's Impression: No acute findings. Status post recent cholecystectomy with edema at the gallbladder fossa. No loculated fluid collections MDM Narrative Medical decision making narrative: Multiple etiologies for patient's symptoms considered include, but not limited to: [Bowel obstruction versus kidney stone versus diverticulitis versus other Patient completely symptom-free for nearly the entirety of the visit. Though she does have slightly elevated LFTs the patient has no pain, imaging is reassuring History, physical exam, labs, imaging, and response to therapies have been reassuring. Findings and discharge diagnosis discussed with patient/family followed by verbalization of understanding Return precautions discussed with patient/family whom verbalize understanding. Pain has been well controlled and patient is tolerating oral hydration. Discharge Plan Departure Patient Disposition: Home Clinical Impression: Abdominal pain Instructions: DI for Abdominal Pain-Adult Activity Restrictions/Additional Instructions: *You have been diagnosed with [abdominal pain] * As we discussed your history and physical exam as well as labs and imaging are very reassuring. There is no evidence of any severe diagnoses that would require a specific or immediate intervention. *What to do: *Please continue to take your regular medications as directed. [x ] New medication prescriptions sent to your pharmacy: [[facility] [place] ] *Please follow up with your primary care provider in 2-3 days, call for an appointment. Let them know you were seen in the Emergency Department and that we ask that you be seen in follow up. We will electronically transmit a record of today's note if your PCP is in our system *Please consider a clear liquid diet for the next 24-48 hours and then slowly advance to regular as tolerated. Also, try to avoid alcohol, nicotine, caffeine, spicy, acidic or fatty foods as this may worsen your symptoms *If you do not have a primary care provider please contact the [facility] Resource line at [phone]. They will ask some questions about your medical history and help get you set up with a doctor in the community. *Return to Emergency Department if you should have any new, worsening or concerning symptoms, such as [fever greater than 101 F, shaking chills, worsening pain, persistent vomiting or other bothersome symptoms] Prescriptions: New hydrocodone-acetaminophen 5-325 mg tablet 1 tab PO Q4-6H PRN (Reason: pain) Qty: 10 0RF ondansetron 4 mg tablet,disintegrating 4 mg PO TID-QID PRN (Reason: nausea and vomiting) Qty: 10 0RF No Action ibuprofen 200 mg tablet 400 mg PO Q6H Qty: 60 0RF docusate sodium [Colace] 100 mg capsule 100 mg PO BID Qty: 30 0RF acetaminophen [Tylenol] 325 mg capsule 650 mg PO QID PRN (Reason: pain) Qty: 60 0RF Referrals: Miscellaneous,Doctor, MD [Primary Care Provider] -
[2022-09-06 03:19] LABS: Add Manual Diff / Slide Review NO; Basophils Absolute Auto 100 /uL (0-100); Basophils Percent Auto 1.2 % (0-2); Eosinophils Absolute Auto 200 /uL (0-450); Eosinophils Percent Auto 2.2 % (2-4); Hematocrit 32.9 % (36-46); Hemoglobin 10.9 g/dL (12.0-16.0); Lymphocytes Absolute Auto 1700 /uL (1100-4500); Lymphocytes Percent Auto 16.5 % (25-40); Mean Corpuscular HGB Conc 33.2 % (30-36); Mean Corpuscular Hemoglobin 29.2 PG (26-34); Mean Corpuscular Volume 88.2 fL (80-100); Monocytes Absolute Auto 1200 /uL (0-900); Monocytes Percent Auto 12.3 % (3-14); Neutrophils Absolute Auto 6900 /uL (1500-7000); Neutrophils Percent Auto 67.8 % (50-75); Platelet Count 264 X10^3/uL (150-400); Red Blood Cell Count 3.73 X10^6/uL (4.0-5.2); Red Cell Distribution Width 13.6 % (11.6-14.8); White Blood Cell Count 10.1 X10^3/uL (4.5-11.0)
[2022-09-06 03:26] LABS: Alanine Aminotransferase 323 IU/L (<35); Albumin Globulin Ratio 1.1 (1.0-2.8); Alkaline Phosphatase 211 U/L (38-126); Aspartate Aminotransferase 299 IU/L (14-36); BUN Creatinine Ratio 13.1 (6-22); Bilirubin Total 0.7 mg/dL (0.2-1.3); Blood Urea Nitrogen 8 mg/dL (7-17); Calcium 8.7 mg/dL (8.4-10.2); Carbon Dioxide 24 mmol/L (22-32); Chloride 107 mmol/L (98-107); Estimated Glomerular Filt Rate > 60 mL/min (>60); Globulin 3.6 g/dL (1.7-4.1); Glucose 118 mg/dL (70-100); HEMOLYSIS < 15 (0-50); Lipase 142 U/L (23-300); Potassium 3.4 mmol/L (3.4-5.1); Sodium 140 mmol/L (137-145); Total Protein 7.6 g/dL (6.3-8.2)
[2022-09-06 04:00] LABS: Influenza A - CEPHEID Flu A NEGATIVE (NEGATIVE); Influenza B - CEPHEID Flu B NEGATIVE (NEGATIVE); Respiratory Syncytial Virus Negative (Negative)
--- NOTE | 2022-09-06 04:00 | DI.CT.S_ITS ---
PROCEDURE: CT ABDOMEN PELVIS W CON INDICATIONS: severe epigastric pain, diaphoresis, radiation to back TECHNIQUE: After the administration of oral and IV contrast, axial sections were acquired from the lung bases to the pubic symphysis. Coronal and sagittal reformats were performed. For radiation dose reduction, the following was used: automated exposure control, adjustment of mA and/or kV according to patient size. COMPARISON: None. FINDINGS: Image quality: Excellent. Lung bases: Unremarkable. Small hiatal hernia. Heart: No significant findings. ABDOMEN: Liver: Normal size. There is a 1 cm cyst in the left hepatic lobe. Mild hepatic steatosis. There is a calcific density along the posterior capsule of liver. Gallbladder: Surgically absent Biliary ducts: Unremarkable. Pancreas: Unremarkable. Spleen: Unremarkable. Adrenal Glands: Unremarkable. Kidneys and Ureters: Unremarkable. Stomach and Bowel: Stomach is filled with fluid with an air-fluid level. There is mild gastric antral thickening. Small bowel loops and colon are normal in caliber. Normal appendix. There is a moderate amount of stool in colon Peritoneum: No abnormal intraperitoneal fluid. No free air. Ventral Wall: No hernia. Abdominal Nodes: No retroperitoneal or mesenteric adenopathy by size criteria. Vessels: Aorta and inferior vena cava are normal in size. PELVIS: Pelvic Organs: Unremarkable. Bladder: Unremarkable. Pelvic Nodes: No enlarged lymph nodes. Miscellaneous: No inguinal hernias are seen. Bones: Unremarkable. IMPRESSION: 1. There is mild gastric antral thickening. The finding may be secondary to peptic ulcer disease, gastritis or artifact from peristalsis. 2. Mild hepatic steatosis. 3. A 1 cm cyst in the left hepatic lobe. No significant discrepancy with the assistant shift supervisor radiology preliminary report. Dictated by: Jennifer Grossman M.D. on 09/06/2022 at 8:02 Approved by: Jennifer Grossman M.D. on 09/06/2022 at 8:06
[2022-09-06 04:02] LABS: COVID-19 CEPHEID 4-PLEX PCR Negative (Negative)
[2022-09-06] MEDS: SODIUM CHLORIDE 0.9% 1,000 ML 1000 ML IV (04:13)
[2022-09-06] MEDS: ONDANSETRON 4 MG/2 ML INJ IV (04:13)
[2022-09-06] MEDS: HYDROMORPHONE 0.5 MG INJ IV (04:13)
== END 2022-09-06 07:54 | disposition home or self-care (01) ==
PROVIDERS: Emergency Provider Emergency Medicine
DX: R10.13 Epigastric pain (principal); M54.9 Dorsalgia, unspecified; Z20.822 Contact with and (suspected) exposure to COVID-19
CPT/HCPCS: 0241U; 36415; 74177; 80053; 81003; 81025; 83690; 85025; 93005; 96361; 96374; 96375; 99284; J1170; J2405; Q9967

== ENCOUNTER 2022-09-11 02:12 | Emergency (ER) | payer OTHER, SELFPAY ==
[2022-08-12 09:59] VITALS: BMI 26.9
[2022-09-11 02:21] VITALS: BP 133/71; PULSE 80; RESP 18; TEMP 36.8; O2SAT 98; BMI 26.4
--- NOTE | 2022-09-11 02:27 | ED.GENADULT ---
HPI - General Adult General Chief complaint: Upper Respiratory Symptoms Stated complaint: food stuck in throat Time Seen by Provider: 09/11/22 02:27 Source: patient Mode of arrival: Ambulatory History of Present Illness HPI narrative: 37-year-old female nonsmoker with recent cholecystectomy presents with a chief complaint of foreign body stuck in her esophagus since about 8:30 p.m.. She denies any history of the same and states that she was eating both green gray pepper as well as hard crackers and felt something get stuck. It has been irritating and painful ever since. She points to her mid right esophagus. She states that she has been able to get liquids down but with each swallow she feels pain in the right side of her throat. She denies any metallic objects, fish bones or other concerns other than cracker or gray pepper. She denies fever or chills. She is had no vomiting. Related Data Previous Rx's Medication Instructions Recorded acetaminophen 325 mg capsule 650 mg PO QID PRN pain #60 caps 08/11/22 (Tylenol) docusate sodium 100 mg capsule 100 mg PO BID #30 caps 08/11/22 (Colace) ibuprofen 200 mg tablet 400 mg PO Q6H #60 tabs 08/11/22 hydrocodone 5 mg-acetaminophen 325 1 tab PO Q4-6H PRN pain #10 tabs 09/06/22 mg tablet ondansetron 4 mg disintegrating 4 mg PO TID-QID PRN nausea and 09/06/22 tablet vomiting #10 tabs Allergies Allergy/AdvReac Type Severity Reaction Status Date / Time No Known Drug Allergies Allergy Verified 08/29/22 09:05 Review of Systems Review of Systems Narrative: GENERAL: Denies chills, fatigue, malaise, fever, sweats. HEENT: See HPI RESPIRATORY: Denies dyspnea, cough, wheezing, hemoptysis, sputum. CARDIOVASCULAR: Denies chest pain, palpitations, orthopnea, edema, GASTROINTESTINAL: Denies nausea, vomiting, abdominal pain, diarrhea, constipation, melena. : Denies dysuria, frequency, incontinence, hematuria, urinary retention. MUSCULOSKELETAL: denies weakness, joint pain, or bony pain SKIN: Denies rash, skin lesions, or other NEUROLOGIC: Denies weakness, headache, numbness, change in speech, confusion, seizures, incoordination. PSYCHIATRIC: No concerning psychosocial issues. 12 point review of systems is negative except for those stated above Patient History Social History household members: spouse Smoking Status: Current every day smoker Smoking Status: Current every day smoker tobacco type: cigarettes and vaping alcohol intake frequency: holidays/special occasions only Substance Use Type: does not use Exam Narrative Exam Narrative: GENERAL: [37] year old patient appears stated age. Well-developed patient, in mild distress. Anxious, appears uncomfortable, rubbing the right side of her throat HEAD: Atraumatic. Normocephalic. EYES: Pupils equal round and reactive. Extraocular motions intact. No scleral icterus. No injection or drainage. ENT: Nose without bleeding, purulent drainage. Throat without erythema, tonsillar hypertrophy or exudate. Airway patent. NECK: Trachea midline. Non tender CARDIOVASCULAR: Regular rate and rhythm without murmurs, gallops, or rubs. RESPIRATORY: Clear to auscultation. Breath sounds equal bilaterally. No wheezes, rales, or rhonchi. GASTROINTESTINAL: Abdomen soft, non-tender, nondistended. EXTREMITIES: No edema or joint tenderness. BACK: Nontender without deformity or crepitance. No flank tenderness. NEURO: AOx3. SKIN: No rash or erythema of visible areas Initial Vital Signs Initial Vital Signs: Vital Signs Temperature 98.3 F 09/11/22 02:21 Pulse Rate 80 09/11/22 02:21 Respiratory Rate 18 09/11/22 02:21 Blood Pressure 133/71 09/11/22 02:21 Pulse Oximetry 98 09/11/22 02:21 Oxygen Delivery Method 09/11/22 02:21 Course Course Course Narrative: Patient able to drink lukewarm alexey andre and keep it down but is visibly uncomfortable, stating she can feel something Consultations Consultation #1: Discussed with on-call surgeon, Dr. Frias. We have discussed patient's history and physical exam and sure the opinion that given she can swallow liquids and even a banana there is unlikely to be an obstructive esophageal foreign body. She recommends either discussion with patient about consuming clear liquids with appropriate return precautions or waiting in the emergency department until morning to discuss possible endoscopy but suggest she has a very low suspicion of foreign body. Vital Signs Vital signs: Vital Signs - 8 hr 09/11/22 02:21 Temperature 98.3 F Pulse Rate 80 Respiratory Rate 18 Blood Pressure 133/71 Pulse Oximetry 98 Oxygen Delivery Method Room Air Medical Decision Making [facility] Narrative Medical decision making narrative: 37-year-old female smoker without significant chronic medical history though recent cholecystectomy presents with concern for esophageal foreign body. She was eating a few hours ago and felt something get stuck in her throat and continues to feel irritation. She is been able to swallow liquids and even a banana without vomiting. She has no systemic complaints such as fever or chills. She has no trouble breathing. After consultation with on-call General surgery I had extensive bedside shared decision making with patient. We discussed discharge with return precautions, clear liquids versus advanced imaging in the form of an IV contrasted soft tissue CT of the neck versus observation. And consultation with surgery for likely endoscopy. After discussing the risks and benefits of each we sure the opinion that discharge with continued use of clear liquids and slowly advancing diet as most appropriate. She understands it for worsening symptoms, fever, increasing pain or persistent vomiting she will return. Questions have been answered to her apparent satisfaction Discharge Plan Departure Patient Disposition: Home Clinical Impression: Esophageal foreign body Instructions: DI for Foreign Body, Swallowed-Adult Activity Restrictions/Additional Instructions: *You have been diagnosed with [possible esophageal foreign body versus esophageal abrasion] *What to do: *Please continue to take your regular medications as directed. *Please follow up with your primary care provider in 2-3 days, call for an appointment. Let them know you were seen in the Emergency Department and that we ask that you be seen in follow up. We will electronically transmit a record of today's note if your PCP is in our system * as we discussed, please consume only clear liquids for the next 24 hours and then advance to a soft diet. *Return to Emergency Department if you should have any new, worsening or concerning symptoms Prescriptions: No Action ibuprofen 200 mg tablet 400 mg PO Q6H Qty: 60 0RF docusate sodium [Colace] 100 mg capsule 100 mg PO BID Qty: 30 0RF acetaminophen [Tylenol] 325 mg capsule 650 mg PO QID PRN (Reason: pain) Qty: 60 0RF hydrocodone-acetaminophen 5-325 mg tablet 1 tab PO Q4-6H PRN (Reason: pain) Qty: 10 0RF ondansetron 4 mg tablet,disintegrating 4 mg PO TID-QID PRN (Reason: nausea and vomiting) Qty: 10 0RF Referrals: Chela Frias MD [Physician] - Miscellaneous,MD Staci [Primary Care Provider] - Visit Report Forms: Patient Portal/API
== END 2022-09-11 03:20 | disposition home or self-care (01) ==
PROVIDERS: Emergency Provider Emergency Medicine
DX: T18.108A Unspecified foreign body in esophagus causing other injury, initial encounter (principal)
CPT/HCPCS: 99281